=== PATIENT | male | born 2000 | race Caucasian/White ===

== ENCOUNTER 2018-10-31 03:50 | Emergency (ER) | payer SELFPAY ==
[~2018-10-31] VITALS: Ht 172.7 cm; Wt 61.3 kg
[2018-10-31] MEDS ORDERED: SODIUM CHLORIDE 0.9% 1,000 ML IV ONE ×2 (05:30→06:15)
[2018-10-31] MEDS ORDERED: ONDANSETRON HCL 4MG/2ML INJ IV ONE (05:30)
[2018-10-31] MEDS ORDERED: ONDANSETRON HCL 4MG/2ML INJ IV STA (06:15)
[2018-10-31] MEDS ORDERED: FAMOTIDINE 20MG/2ML VIAL IV STA (06:15)
[2018-10-31 06:30] LABS: CHLORIDE 114 mEq/L (98-107)
[2018-10-31 06:34] LABS: BASOPHILS % 0.3 % (0.0-2.0); EOSINOPHILS % 0.6 % (0.0-5.0); ETHANOL BLOOD 164 mg/dL; HEMOGLOBIN. 14.7 g/dL (14.0-18.0); LYMPHOCYTES % 20.6 % (20.0-50.0); MEAN CORPUSCULAR HEMOGLOBIN 32.2 pg (28.0-32.0); MEAN CORPUSCULAR VOLUME 92.1 fL (80.0-94.0); MEAN PLATELET VOLUME 8.6 fl (7.4-10.4); NEUTROPHILS % 72.5 % (40.0-76.0); PLATELET 163 x1000/uL (130-400); RED BLOOD CELL COUNT 4.56 mill/uL (4.7-6.1); RED CELL DISTRIBUTION WIDTH 13.7 % (11.6-14.6)
[2018-10-31 07:38] VITALS: BP 105/64
== END 2018-10-31 07:57 | disposition left against medical advice (07) ==
LOC: ER 03:50
DX: T51.0X1A Toxic effect of ethanol, accidental (unintentional), initial encounter (principal); G92 Toxic encephalopathy; Y92.89 Other specified places as the place of occurrence of the external cause
CPT/HCPCS: 36415; 80053; 80320; 83690; 85025; 96361; 96374; 96375; 99283; J2405; J3490; J7030; Z7610; G0480